=== PATIENT | female | born 1980 | race Caucasian/White ===

== ENCOUNTER 2020-10-06 22:31 | Emergency (ER) | payer OTHER ==
[~2020-10-06] VITALS: Ht 160 cm; Wt 63.5 kg
[~2020-10-06 22:31] MED LIST: PENVK500 PO; TRAM50 PO
[2020-10-07] MEDS ORDERED: CEPH500 PO (00:07)
== END 2020-10-07 01:28 | disposition home or self-care (01) ==
LOC: ER 22:31
DX: S91.332A Puncture wound without foreign body, left foot, initial encounter (principal); F17.200 Nicotine dependence, unspecified, uncomplicated; W45.0XXA Nail entering through skin, initial encounter
CPT/HCPCS: 73620; 90471; 90714; 99283-25; A9270

== ENCOUNTER 2022-02-19 02:03 | Emergency (ER) | payer OTHER ==
[~2022-02-19] VITALS: Ht 157.5 cm; Wt 63.5 kg
[~2022-02-19 02:03] MED LIST changes: +CEPH500 PO
== END 2022-02-19 05:00 | disposition home or self-care (01) ==
LOC: ER 02:03
DX: R60.0 Localized edema (principal); F17.200 Nicotine dependence, unspecified, uncomplicated
CPT/HCPCS: 99284

== ENCOUNTER 2024-06-21 17:07 | Emergency (ER) | payer OTHER ==
[~2024-06-21] VITALS: Ht 160 cm; Wt 54.4 kg
[2024-06-21 17:42] LABS: BASOPHILS ABSOLUTE AUTO 0.03 K/mm3 (0.00-0.23); BASOPHILS PERCENT AUTO 0 % (0-2); EOSINOPHILS ABSOLUTE AUTO 0.07 K/mm3 (0.00-0.68); EOSINOPHILS PERCENT AUTO 1 % (0-6); Hematocrit 42.2 % (33.0-51.0); Hemoglobin 14.2 g/dL (11.5-16.0); IMMATURE GRAN ABSOLUTE AUTO 0.04 K/mm3 (0.00-0.10); IMMATURE GRAN PERCENT AUTO 0 % (0-1); LYMPHOCYTES ABSOLUTE AUTO 2.37 K/mm3 (0.84-5.20); LYMPHOCYTES PERCENT AUTO 21 % (21-46); MONOCYTES ABSOLUTE AUTO 0.81 K/mm3 (0.16-1.47); MONOCYTES PERCENT AUTO 7 % (4-13); Mean Corpuscular HGB Conc 33.6 g/dL (31.5-36.5); Mean Corpuscular Volume 98 fL (80-100); NEUTROPHILS ABSOLUTE AUTO 7.81 K/mm3 (1.96-9.15); NEUTROPHILS PERCENT AUTO 70 % (41-73); Platelet Count 169 K/mm3 (150-400); RDW Coefficient Variation 13.2 % (11.7-14.2); White Blood Cell Count 11.13 K/mm3 (4.00-11.30)
[2024-06-21 18:07] LABS: Albumin, Blood 4.2 g/dL (3.4-5.0); Albumin/Globulin Ratio 1.4 (0.8-1.8); Bilirubin, Total 0.4 mg/dL (0.1-1.0); Bun/Creatinine Ratio 14.6 (12.0-20.0); Calcium, Blood 9.5 mg/dL (8.5-10.1); Creatinine, Blood 0.68 mg/dL (0.40-1.00); Potassium, Blood 3.9 mmol/L (3.5-5.5); Thyroid Stimulating Hormone 1.17 uIU/mL (0.360-4.800); Total Protein, Blood 7.2 g/dL (6.4-8.2)
[2024-06-21 19:17] VITALS: BP 137/90
== END 2024-06-21 19:36 | disposition home or self-care (01) ==
LOC: ER 17:07
PROVIDERS: Emergency Medicine
DX: G45.9 Transient cerebral ischemic attack, unspecified (principal); F17.200 Nicotine dependence, unspecified, uncomplicated
CPT/HCPCS: 70450; 80053; 84443; 85025; 93005; 93010; 99285-25

== ENCOUNTER 2024-12-15 13:06 | Emergency (ER) | payer OTHER ==
[~2024-12-15] VITALS: Ht 160 cm; Wt 51.7 kg
[2024-12-15 13:27] VITALS: BP 134/90
== END 2024-12-15 14:24 | disposition home or self-care (01) ==
LOC: ER 13:06
DX: F11.90 Opioid use, unspecified, uncomplicated (principal); Z76.0 Encounter for issue of repeat prescription; F17.210 Nicotine dependence, cigarettes, uncomplicated
CPT/HCPCS: 99281